=== PATIENT | male | born 1955 | race Caucasian/White ===

== ENCOUNTER 2022-06-23 08:00 | Outpatient (CLI) | payer MEDICARE, OTHER, SELFPAY ==
--- NOTE | ~2022-06-23 | US_ITS ---
US arterial ankle brachial ind INDICATION: Peripheral vascular disease TECHNIQUE: Segmental pressures and plethysmographic and Doppler waveforms of the brachial and lower e xtremity arteries were obtained. COMPARISON: None. FINDINGS: Right and left brachial artery pressures of 144 mm Hg and 151 mm Hg, respectively, are concordant (no rmal difference <= 30 mmHg). The right ankle-brachial index (DAVID) is 1.14 (normal >= 0.9-1.0). The right great toe-brachial index (TBI) is 0.91 (normal >= 0.60). The left DAVID is 1.17. The left TBI is 0.97. IMPRESSION: 1. Normal bilateral ankle-brachial indices. Reviewed, dictated and finalized at location B.
--- NOTE | ~2022-06-23 | CT_ITS ---
EXAMINATION: CT abdomen pelvis w con DATE: 06/23/2022 08:57 INDICATION: Abdominal pain and bloating for one month TECHNIQUE: Computed tomography (CT) of the abdomen and pelvis was performed with 100 CC Omnipaque 350 intravenous contrast. Automated exposure control and iterative reconstruction technique were employe d. Exam dose: 1095.99 mGy-cm total exam DLP. COMPARISON: None. FINDINGS: Bilateral lower lobe discoid atelectasis and/or scarring. Normal heart size. No pericardial or pleural effusion. Normal morphology of the adrenal glands. There are numerous stones in the dependent aspect of the gallbladder. No gallbladder wall thickening or pericholecystic fluid or fat stranding. No bile duct or pancreatic duct dilatation. No hepatic, splenic, pancreatic or suspicious solid renal space-occupying mass lesion is detected. 1.9 cm exophytic right renal cyst. No urinary tract calculus or hydroureteronephrosis. The urinary bl adder is unremarkable. There is prostate enlargement and calcification. Small fat-containing left inguinal hernia. Normal appendix. No bowel obstruction, bowel wall thickening, pneumatosis or intraperitoneal free air . Calcification but normal caliber of the abdominal aorta and iliac arteries. No intraperitoneal or ret roperitoneal or pelvic mass lesion or adenopathy or ascites. No suspicious osteolytic or osteoblastic lesions. IMPRESSION: Bilateral lower lobe discoid atelectasis and/or scarring Cholelithiasis 1.9 cm right renal cyst Normal appendix Reviewed, dictated and finalized at Location [facility]. Reviewed, dictated and finalized at location A.
[2022-06-23 08:48] LABS: Estimated Glomerular Filt Rate > 60
== END 2022-06-23 08:01 | disposition home or self-care (01) ==
PROVIDERS: Visit Provider Physician Assistant Medical
DX: I73.9 Peripheral vascular disease, unspecified (principal); R14.0 Abdominal distension (gaseous); K43.9 Ventral hernia without obstruction or gangrene; K80.20 Calculus of gallbladder without cholecystitis without obstruction; N28.1 Cyst of kidney, acquired
CPT/HCPCS: 74177; 93922; Q9967

== ENCOUNTER 2024-05-28 13:59 | Outpatient (CLI) | payer MEDICARE, OTHER, SELFPAY ==
--- NOTE | ~2024-05-28 | CT_ITS ---
CT Scan of the Chest without Contrast: Clinical Indication: Lung cancer screening, nicotine dependence Technique: Contiguous sections were acquired throughout the chest without intravenous contrast. Dose reduction technique was used on this scan by utilizing automated exposure control and iterative recon struction technique. The dose-length product (DLP) was 229.59 mGy-cm. Findings: There is no evidence of any significant mediastinal, hilar or axillary lymphadenopathy. Vascular calcifications of the aorta and coronary arteries. There is no evidence of pleural or pericardial effusion. There is discoid atelectasis or scarring at the right lower lobe. There is a small area of tree-in-bu d nodular opacities in the right lower lobe. Images through the upper abdomen reveal calcified gallstone. Impression: Lung RADS 2: Benign appearance. 12 month follow-up screening CT advised. Small area of tree-in-bud opacities the right lower lobe suggests focal small areas infection. Reviewed, dictated and finalized at [facility]. Impression: Lung RADS 2: Benign appearance. 12 month follow-up screening CT advised. Small area of tree-in-bud opacities the right lower lobe suggests focal small a reas infection.
== END 2024-05-28 14:00 | disposition home or self-care (01) ==
LOC: ANHIMG 14:03
PROVIDERS: PCP Physician Assistant Medical; Visit Provider Physician Assistant Medical
DX: Z12.2 Encounter for screening for malignant neoplasm of respiratory organs (principal); R91.8 Other nonspecific abnormal finding of lung field; Z87.891 Personal history of nicotine dependence
CPT/HCPCS: 71271

== ENCOUNTER 2024-07-29 18:08 | Emergency (ER) | payer MEDICARE, OTHER, SELFPAY ==
[2024-07-29 18:12] VITALS: BP 141/77; PULSE 89; RESP 18; TEMP 36.4; O2SAT 95
--- NOTE | 2024-07-29 22:23 | PC.NURSE ---
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 Pt ambulated out of ED w/ steady gait.
== END 2024-07-29 22:23 | disposition left against medical advice (07) ==
PROVIDERS: PCP Physician Assistant Medical
DX: M54.50 Low back pain, unspecified (principal)
CPT/HCPCS: 99199

== ENCOUNTER 2025-06-05 13:14 | Outpatient (RCR) | payer OTHER, SELFPAY ==
[2025-06-05 13:24] VITALS: BMI 29.7
[2025-06-05 13:30] VITALS: BMI 29.7
--- NOTE | 2025-06-05 16:09 | PCDIET ---
MNT consult completed. thank you for this referral. See note [employer] [id number]
== END 2025-08-25 12:48 | disposition home or self-care (01) ==
LOC: ANHDMC 13:14
PROVIDERS: PCP Physician Assistant Medical; Visit Provider Internal Medicine
DX: E11.65 Type 2 diabetes mellitus with hyperglycemia (principal); E78.5 Hyperlipidemia, unspecified; Z71.3 Dietary counseling and surveillance
CPT/HCPCS: 97802

== ENCOUNTER 2025-08-25 16:35 | Emergency (ER) | payer OTHER, SELFPAY ==
--- NOTE | ~2025-08-25 | XR_ITS ---
XR chest 2V HOSTORY: CP, HTN COMPARISON:[ None] FINDINGS: Frontal and lateral views of the chest were obtained. The lungs are clear. The heart size is normal in size. Pulmonary vasculature is unremarkable. Osseous structures are intact. IMPRESSION: No acute lung findings.] [ ] Reviewed, dictated and finalized at location S. [employer]
[2025-08-25 16:58] VITALS: BP 181/82; PULSE 99; RESP 18; TEMP 36.9; O2SAT 97
--- NOTE | 2025-08-25 17:03 | ECG_ITS ---
Test Date: 2025-08-25 17:13:32 Measurements Intervals [place] Rate: 96 P: 0 PA: 0 QRS: -46 QRSD: 180 T: 0 QT: 330 QTc: 418 Interpretive Statements SINUS RHYTHM WITH EPISODES OF ATRIAL TACHYCARDIA CONSIDER ANTERIOR INFARCT, AGE INDETERMINATE BORDERLINE T WAVE ABNORMALITY- INFERIOR LEADS BASELINE ARTIFACT- II, III, V1-V6 ABNORMAL ECG No previous ECG available for comparison Electronically Signed On 08-25-2025 20:57:35 SLITTER OPERATOR by Eran Odonnell D.O.
--- NOTE | 2025-08-25 17:08 | ED_ITS ---
HPI - General Adult General Chief complaint: Unspecified <Goldie Lees PA-C - Last Filed: 08/25/25 17:17> Stated complaint: HTN <Goldie Lees PA-C - Last Filed: 08/25/25 17:17> Time Seen by Provider: 08/25/25 17:08 <Goldie Lees PA-C - Last Filed: 08/25/25 17:17> Focused HPI: Patient is a 70 y/o male, with PMH of HTN/HLD, who presents to the ED with c/o midsternal chest tightness. Patient reports having tightness in chest intermittently for some time now. States typically only lasts a couple of minutes at a time before resolving. Developed tightness in chest last night which has persisted into today. Denies radiation into neck, back, arms. Took his BP at home this afternoon and it was elevated to 190s systolic/100 diastolic. Called PCP and was referred to the ED for further evaluation. Is on losartan for HTN, but does not regularly check his blood pressure. Denies previous heart issues. Does not believe he has ever had a stress test. Denies known FHx of heart disease. Denies SOB, pain/swelling in legs, MCLAIN, blurry vision, dizziness/lightheadedness. GENERAL: Well-appearing, well-nourished, and in no acute distress. HEAD: Normocephalic, atraumatic. CHEST: Clear to auscultation. ?No respiratory distress. HEART: Regular rate and rhythm.? NEURO: ?Alert and oriented x3. Patient screened in triage and initial orders placed.? ?Additional care and disposition to be based upon?diagnostic testing and treatment. <Goldie Lees PA-C - Last Filed: 08/25/25 17:17> Focused HPI: Patient is a 70 y/o male, with PMH of HTN/HLD, who presents to the ED with c/o midsternal chest tightness. Patient reports having tightness in chest intermittently for some time now,. States typically only lasts a couple of minutes at a time before resolving, nonexertional. Developed tightness in chest last night which has persisted into today. Denies radiation into neck, back, arms. Took his BP at home this afternoon and it was elevated to 190s systolic/100 diastolic. Called PCP and was referred to the ED for further evaluation. Is on losartan for HTN, but does not regularly check his blood pressure. Denies previous heart issues. Reports he has had at least 2 stress tests, unsure when the last one was. Denies known FHx of heart disease. Denies SOB, pain/swelling in legs, MCLAIN, blurry vision, dizziness/lightheadedness. GENERAL: Well-appearing, well-nourished, and in no acute distress. HEAD: Normocephalic, atraumatic. CHEST: Clear to auscultation. ?No respiratory distress. HEART: Regular rate and rhythm.? NEURO: ?Alert and oriented x3. Patient screened in triage and initial orders placed.? ?Additional care and disposition to be based upon?diagnostic testing and treatment. <Pilar Huang PA-C - Last Filed: 08/25/25 22:41> Source: patient <MARLO Delgado Last Filed: 08/25/25 17:17> Mode of arrival: ambulatory <MARLO Delgado Last Filed: 08/25/25 17:17> Limitations: no limitations <Goldie Lees PA-C - Last Filed: 08/25/25 17:17> Related Data Allergies/adverse reactions: Allergies Allergy/AdvReac Type Severity Reaction Status Date / Time [id number] Reductase Allergy Intermediate myalgias Verified 08/25/25 16:36 Inhibitor <Goldie Lees PA-C - Last Filed: 08/25/25 17:17> Review of Systems 2 Review of Systems: All systems reviewed & are unremarkable except as noted in HPI and below <MARLO Sanchez Last Filed: 08/25/25 22:41> PMFSH Past Medical History Medical History: Medical History Diabetes mellitus type II, controlled BPH (benign prostatic hyperplasia) Atypical nevi Visit for suture removal Hypertension Hyperlipidemia Screening for prostate cancer <MARLO Delgado Last Filed: 08/25/25 17:17> Surgical History Surgical History: Surgical History H/O oral surgery History of tonsillectomy <MARLO Delgado Last Filed: 08/25/25 17:17> Family History Family History: Family History Father Malignant neoplasm of prostate Mother Multiple sclerosis <MARLO Delgado Last Filed: 08/25/25 17:17> Social History Social History: Social History Social History: 05/05/25 Pt declined SDOH Smoking status: Former smoker Tobacco type: cigarettes Second hand tobacco smoke exposure: No Smoking end date: 08/28/91 Alcohol intake: current Alcohol use details: rarely Substance use: never Substance use type: does not use Lack of Transportation: No Lack of Food: Never True Current Housing: I Have Housing Concerned About Future Housing: No Difficulty Paying Gas/Electric Bills: No Difficulty Paying for Meds: No Currently Unemployed: No Education: Don't Know Difficulty w/ Childcare or Family Care: No Living arrangements: alone Occupation/Education: retired Gender identity (if verbalized by the patient): Male Sexual Orientation (if Verbalized by the Patient): Straight or Heterosexual Spiritual care concerns: No <MARLO Delgado Last Filed: 08/25/25 17:17> Exam 2 Narrative: GENERAL: Well-appearing, well-nourished, and in no acute distress. HEAD: Normocephalic, atraumatic. EYES: EOMI. CHEST: No respiratory distress. HEART: Regular rate EXTREMITIES: Normal range of motion. No edema. SKIN: Warm, dry, no rash. NEURO: No focal deficits. Alert and oriented x3. PSYCH: Normal mood and affect <MARLO Sanchez Last Filed: 08/25/25 22:41> Course Vital Signs Vital signs: Vital Signs Temperature 98.5 F 08/25/25 16:58 Pulse Rate 99 08/25/25 16:58 Respiratory Rate 18 08/25/25 16:58 Blood Pressure 181/82 H 08/25/25 16:58 Pulse Oximetry 97 08/25/25 16:58 Oxygen Delivery Room Air 08/25/25 16:58 Temperature 98.5 F 08/25/25 16:58 Pulse Rate 83 08/25/25 21:49 Respiratory Rate 18 08/25/25 21:49 Blood Pressure 163/88 H 08/25/25 21:49 Pulse Oximetry 99 08/25/25 21:49 Oxygen Delivery Room Air 08/25/25 16:58 <Goldie Lees PA-C - Last Filed: 08/25/25 17:17> Vital Signs Temperature 98.5 F 08/25/25 16:58 Pulse Rate 99 08/25/25 16:58 Respiratory Rate 18 08/25/25 16:58 Blood Pressure 181/82 H 08/25/25 16:58 Pulse Oximetry 97 08/25/25 16:58 Oxygen Delivery Room Air 08/25/25 16:58 Temperature 98.5 F 08/25/25 16:58 Pulse Rate 83 08/25/25 21:49 Respiratory Rate 18 08/25/25 21:49 Blood Pressure 163/88 H 08/25/25 21:49 Pulse Oximetry 99 08/25/25 21:49 Oxygen Delivery Room Air 08/25/25 16:58 <Pilar Huang PA-C - Last Filed: 08/25/25 22:41> MDM MDM Narrative Medical decision making narrative: MSE by FAWN in triage <MARLO Delgado Last Filed: 08/25/25 17:17> MSE by FAWN in triage Patient presents emergency department for elevated blood pressure readings. Ongoing over the last week. Does report he has been having intermittent chest pains for a while as well. Blood pressure elevated to 180 systolic arrival, this down trended without intervention. CBC and metabolic panel without concerning findings. EKG without acute ST changes, baseline and 3 hour troponin are negative. Chest x-ray without acute cardiopulmonary abnormality. Patient was updated on his workup. We did speak about admission for further evaluation of his chest pain. Patient wishes to follow-up with his PCP for further evaluation. He does have an appointment tomorrow morning. Instructed to return at any time for worsening symptoms <Pilar Huang PA-C - Last Filed: 08/25/25 22:41> Differential Diagnosis Differential Diagnosis: Angina, pneumonia, hypertension, hypertensive urgency <Pilar Huang PA-C - Last Filed: 08/25/25 22:41> Lab Data [facility] Lab Attestation statement: I personally reviewed the patient's lab results. <Pilar Huang PA-C - Last Filed: 08/25/25 22:41> Result diagrams: 08/25/25 18:02 08/25/25 18:02 <Goldie Lees PA-C - Last Filed: 08/25/25 17:17> Labs: Lab Results 08/25/25 08/25/25 Range/Units 18:02 21:55 WBC 7.3 (4.5-10.0) K/mm3 RBC 5.04 (4.6-6.20) M/mm3 Hgb 15.5 (14.0-18.0) g/dL Hct 45.0 (42.0-52.0) % MCV 89.3 (80-100) fl MCH 30.8 (26-34) pg MCHC 34.4 (32-36) g/dl RDW 12.2 (11.5-14.5) % Plt Count 240 (150-375) k/mm3 MPV 9.7 (7.4-10.4) fl Immature Gran % (Auto) 0.1 (0-0.5) % Neut % (Auto) 60.7 (45.5-73.1) % Lymph % (Auto) 30.1 (18.3-44.2) % [place] % (Auto) 7.0 (2.6-8.5) % Eos % (Auto) 1.1 (0-4.4) % Baso % (Auto) 1.0 (0.2-1.2) % Lymph # (Auto) 2.20 (0.9-3.2) K/mm3 [place] # (Auto) 0.5 (0.1-0.6) K/mm3 Eos # (Auto) 0.1 (0-0.3) K/mm3 Baso # (Auto) 0.1 (0.0-0.1) K/mm3 Abs Immat Gran (auto) 0.01 (0.00-0.031) K/mm3 Absolute Neuts (auto) 4.5 (1.3-6.7) K/mm3 Absolute Nucleated RBC 0.000 (0.0-0.012) K/mm3 Nucleated RBC % 0.0 (0.0-0.2) % PT 13.5 (11.1-14.7) Seconds INR 1.0 APTT 24.7 (22.3-36.8) Seconds Sodium 138 (137-145) mmol/L Potassium 4.0 (3.4-5.0) mmol/L Chloride 106 (98-107) mmol/L Carbon Dioxide 30 (22-30) mmol/L Anion Gap 2 L (4-12) mmol/L BUN 15 (9-20) mg/dL Creatinine 0.75 (0.7-1.3) mg/dL Estim Creat Clear Calc 101 ml/min Estimated GFR > 60 (59 - ) Glucose 101 (65-110) mg/dL Calcium 8.7 (8.4-10.2) mg/dL Total Bilirubin 0.8 (0.2-1.3) mg/dL AST 27 (17-59) U/L ALT 23 (6-50) U/L Alkaline Phosphatase 59 (38-126) U/L Troponin I < 0.012 < 0.012 (0.000-0.034) ng/mL NT-Pro-B Natriuret Pep 160 H (19.9-100) pg/mL Total Protein 7.1 (6.3-8.2) g/dL Albumin 4.1 (3.5-5.1) g/dL <Goldie Lees PA-C - Last Filed: 08/25/25 17:17> Lab Results 08/25/25 08/25/25 Range/Units 18:02 21:55 WBC 7.3 (4.5-10.0) K/mm3 RBC 5.04 (4.6-6.20) M/mm3 Hgb 15.5 (14.0-18.0) g/dL Hct 45.0 (42.0-52.0) % MCV 89.3 (80-100) fl MCH 30.8 (26-34) pg MCHC 34.4 (32-36) g/dl RDW 12.2 (11.5-14.5) % Plt Count 240 (150-375) k/mm3 MPV 9.7 (7.4-10.4) fl Immature Gran % (Auto) 0.1 (0-0.5) % Neut % (Auto) 60.7 (45.5-73.1) % Lymph % (Auto) 30.1 (18.3-44.2) % [place] % (Auto) 7.0 (2.6-8.5) % Eos % (Auto) 1.1 (0-4.4) % Baso % (Auto) 1.0 (0.2-1.2) % Lymph # (Auto) 2.20 (0.9-3.2) K/mm3 [place] # (Auto) 0.5 (0.1-0.6) K/mm3 Eos # (Auto) 0.1 (0-0.3) K/mm3 Baso # (Auto) 0.1 (0.0-0.1) K/mm3 Abs Immat Gran (auto) 0.01 (0.00-0.031) K/mm3 Absolute Neuts (auto) 4.5 (1.3-6.7) K/mm3 Absolute Nucleated RBC 0.000 (0.0-0.012) K/mm3 Nucleated RBC % 0.0 (0.0-0.2) % PT 13.5 (11.1-14.7) Seconds INR 1.0 APTT 24.7 (22.3-36.8) Seconds Sodium 138 (137-145) mmol/L Potassium 4.0 (3.4-5.0) mmol/L Chloride 106 (98-107) mmol/L Carbon Dioxide 30 (22-30) mmol/L Anion Gap 2 L (4-12) mmol/L BUN 15 (9-20) mg/dL Creatinine 0.75 (0.7-1.3) mg/dL Estim Creat Clear Calc 101 ml/min Estimated GFR > 60 (59 - ) Glucose 101 (65-110) mg/dL Calcium 8.7 (8.4-10.2) mg/dL Total Bilirubin 0.8 (0.2-1.3) mg/dL AST 27 (17-59) U/L ALT 23 (6-50) U/L Alkaline Phosphatase 59 (38-126) U/L Troponin I < 0.012 < 0.012 (0.000-0.034) ng/mL NT-Pro-B Natriuret Pep 160 H (19.9-100) pg/mL Total Protein 7.1 (6.3-8.2) g/dL Albumin 4.1 (3.5-5.1) g/dL <Pilar Huang PA-C - Last Filed: 08/25/25 22:41> Imaging Data Radiologist's impression: ITS Impressions Chest X-Ray 08/25/25 17:34 IMPRESSION: No acute lung findings.] [ ] <Goldie Lees PA-C - Last Filed: 08/25/25 17:17> ITS Impressions Chest X-Ray 08/25/25 17:34 IMPRESSION: No acute lung findings.] [ ] <Pilar Huang PA-C - Last Filed: 08/25/25 22:41> ECG Data EKG #1: ECG completion date: 08/25/25 <Pilar Huang PA-C - Last Filed: 08/25/25 22:41> normal rate, sinus rhythm, no ST changes and normal QT <Pilar Huang PA-C - Last Filed: 08/25/25 22:41> Critical Care Time Critical Care Time Critical Care Time: No <Pilar Huang PA-C - Last Filed: 08/25/25 22:41> Discharge Plan Discharge Clinical Impression: Elevated blood pressure reading Chest pain Qualifiers: Chest pain type: unspecified Qualified Code(s): R07.9 - Chest pain, unspecified <Goldie Lees PA-C - Last Filed: 08/25/25 17:17> Patient Disposition: Home <Goldie Lees PA-C - Last Filed: 08/25/25 17:17> Condition: Stable <Goldie Lees PA-C - Last Filed: 08/25/25 17:17> Instructions: Chest Pain (ED), Hypertension (ED) <Goldie Lees PA-C - Last Filed: 08/25/25 17:17> Additional Instructions: Return to the ER for chest pain, shortness of breath, you pass out, swelling in your legs, or any other symptoms that are concerning to you Continue your home medications as prescribed Follow up with your primary doctor at your appointment tomorrow <Goldie Lees PA-C - Last Filed: 08/25/25 17:17> Patient Language: Maltese <MARLO Delgado Last Filed: 08/25/25 17:17> Prescriptions: No Action cyclobenzaprine 10 mg tablet 10 mg PO BID PRN (Reason: muscle spasm) Qty: 60 2RF sildenafil [Viagra] 100 mg tablet 50 - 100 mg PO DAILY PRN (Reason: sexual activity) Qty: 10 2RF Rx Instructions: administer 30 minutes to 4 hours before activity losartan 50 mg tablet 50 mg PO DAILY Qty: 90 0RF pitavastatin calcium [Livalo] 2 mg tablet 2 mg PO DAILY Qty: 90 0RF tamsulosin 0.4 mg capsule 0.4 mg PO DAILY Qty: 90 0RF ezetimibe 10 mg tablet 10 mg PO DAILY Qty: 90 0RF metformin [Glucophage XR] 500 mg tablet extended release 24 hr 500 mg PO BID Qty: 180 0RF Rx Instructions: DOSE INCREASED TO TWICE A DAY 05/12/25 <Goldie Lees PA-C - Last Filed: 08/25/25 17:17> Follow-up/Referrals: Sabrina Vega, BUTCHER FISH [Primary Care Provider, Family Practice] <Goldie Lees PA-C - Last Filed: 08/25/25 17:17> Quality HEART score for chest pain patients History: slightly suspicious <MARLO Sanchez Last Filed: 08/25/25 22:41> ECG: normal <MARLO Sanchez Last Filed: 08/25/25 22:41> Age: > or = to 65 years <MARLO Sanchez Last Filed: 08/25/25 22:41> Risk factors: > or = to 3 risk factors of atherosclerotic disease <MARLO Sanchez Last Filed: 08/25/25 22:41> Troponin: < or = to 1x normal limit <Pilar Huang PA-C - Last Filed: 08/25/25 22:41> Heart score: 4 <Pilar Huang PA-C - Last Filed: 08/25/25 22:41>
[2025-08-25 18:10] LABS: Hematocrit 45.0 % (42.0-52.0); Hemoglobin 15.5 g/dL (14.0-18.0); Immature Granulocyte Percent A 0.1 % (0-0.5); Lymphocytes Absolute Auto 2.20 K/mm3 (0.9-3.2); Mean Corpuscular HGB Conc 34.4 g/dl (32-36); Mean Corpuscular Hemoglobin 30.8 pg (26-34); Mean Corpuscular Volume 89.3 fl (80-100); Nucleated Red Blood Cells Absolute Auto 0.000 K/mm3 (0.0-0.012); Nucleated Red Blood Cells Perc 0.0 % (0.0-0.2); Platelet Count Result 240 k/mm3 (150-375); Red Blood Count 5.04 M/mm3 (4.6-6.20); White Blood Count 7.3 K/mm3 (4.5-10.0)
[2025-08-25 18:21] LABS: INR 1.0; Prothrombin Time 13.5 Seconds (11.1-14.7)
[2025-08-25 18:22] LABS: Partial Thromboplastin Time 24.7 Seconds (22.3-36.8)
[2025-08-25 18:28] LABS: Alanine Aminotransferase 23 U/L (6-50); Albumin Level 4.1 g/dL (3.5-5.1); Alkaline Phosphatase 59 U/L (38-126); Anion Gap 2 mmol/L (4-12); Aspartate Amino Transferase 27 U/L (17-59); Bilirubin,Total 0.8 mg/dL (0.2-1.3); Blood Urea Nitrogen 15 mg/dL (9-20); Calcium 8.7 mg/dL (8.4-10.2); Carbon Dioxide 30 mmol/L (22-30); Chloride 106 mmol/L (98-107); Estimated CRCL calculation 101 ml/min; Estimated Glomerular Filt Rate > 60; Glucose 101 mg/dL (65-110); Potassium 4.0 mmol/L (3.4-5.0); Sodium 138 mmol/L (137-145); Total Protein 7.1 g/dL (6.3-8.2)
[2025-08-25 18:33] LABS: NT Pro B Type Natriuretic Pept 160 pg/mL (19.9-100); Troponin I < 0.012 ng/mL (0.000-0.034)
--- NOTE | 2025-08-25 21:48 | ECG_ITS ---
Test Date: 2025-08-25 21:51:20 Measurements Intervals [place] Rate: 78 P: 6 ME: 187 QRS: -37 QRSD: 98 T: 0 QT: 339 QTc: 387 Interpretive Statements SINUS RHYTHM WITH FREQUENT SUPRAVENTRICULAR PREMATURE COMPLEXES LEFT AXIS DEVIATION POOR R WAVE PROGRESSION BORDERLINE T WAVE ABNORMALITY- ANT/HIGH LAT LEADS BASELINE ARTIFACT- I, III, AVR, AVL ABNORMAL ECG Compared to ECG 08/25/2025 17:13:32 ATRIAL TACHYCARDIA NO LONGER PRESENT Electronically Signed On 08-25-2025 22:04:57 NURSE DISCHARGE PLANNER by Eran Odonnell D.O.
[2025-08-25 21:49] VITALS: BP 163/88; PULSE 83; RESP 18; O2SAT 99
[2025-08-25 22:22] LABS: Troponin I < 0.012 ng/mL (0.000-0.034)
== END 2025-08-25 22:49 | disposition home or self-care (01) ==
PROVIDERS: Physician Assistant; Emergency Provider Physician Assistant; PCP Nurse Practitioner Family
DX: R07.89 Other chest pain (principal); I10 Essential (primary) hypertension; E78.5 Hyperlipidemia, unspecified; E11.9 Type 2 diabetes mellitus without complications; N40.0 Benign prostatic hyperplasia without lower urinary tract symptoms; Z87.891 Personal history of nicotine dependence; R94.31 Abnormal electrocardiogram [ECG] [EKG]; Z79.899 Other long term (current) drug therapy; Z79.84 Long term (current) use of oral hypoglycemic drugs
CPT/HCPCS: 36415; 71046; 80053; 83880; 84484; 85025; 85610; 85730; 93005; 99284